=== PATIENT | male | born 1985 | race Caucasian/White ===

== ENCOUNTER 2017-12-28 08:31 | Emergency (ER) | payer BC ==
[2017-12-28 08:55] VITALS: BP 146/79
--- NOTE | 2017-12-28 10:02 | UC ---
Lower Extremity/Ankle HPI - HPI Summary HPI Summary: 32 yo male presents with left ankle pain and low back pain s/p fall last night. He tells me that he was standing on a bucket while fixing his truck and fell backwards. He landed on his "tailbone" and twisted his left ankle. Has had pain in these areas since. Did not hit his head. He has been taking 800mg ibuprofen with good relief of pain. He has fx'd his left ankle in the past and is concerned he may have fractured it again. He is ambulatory without assistance, but does have significant pain. He denies numbness, tingling, saddle anesthesia , of loss of bowel/bladder control. - History of Current Complaint Chief Complaint: UCTrauma Stated Complaint: S/P FALL LEFT LEG/TAILBONE Time Seen by Provider: 12/28/17 10:01 Hx Obtained From: Patient Severity Initially: Moderate Severity Currently: Moderate Pain Intensity: 6 Pain Scale Used: 0-10 Numeric Aggravating Factor(s): Standing, Ambulation Able to Bear Weight: Yes - Allergies/Home Medications Allergies/Adverse Reactions: Allergies Allergy/AdvReac Type Severity Reaction Status Date / Time No Known Allergies Allergy Verified 12/28/17 08:55 Home Medications: Home Medications Ibuprofen TAB* [Motrin TAB* 800 MG] 800 mg PO Q6H 12/28/17 [History Confirmed ] Omeprazole CAP* [Prilosec CAP* 20 MG] 20 mg PO BEDTIME 12/28/17 [History Confirmed 12/28/17] PMH/Surg Hx/FS Hx/Imm Hx GI/ History: Gastroesophageal Reflux - Surgical History Surgical History: Yes Surgery Procedure, Year, and Place: HERNIA - Family History Known Family History: Positive: None - Social History Occupation: Employed Full-time Lives: With Family Alcohol Use: Occasionally Substance Use Type: None Smoking Status (MU): Never Smoked Tobacco Review of Systems Constitutional: Negative Skin: Negative Respiratory: Negative Cardiovascular: Negative Gastrointestinal: Negative Genitourinary: Negative Neurovascular: Negative Musculoskeletal: Other: - LBP. Left ankle pain Neurological: Negative Psychological: Negative All Other Systems Reviewed And Are Negative: Yes Physical Exam - Summary Physical Exam Summary: GENERAL: NAD. WDWN. No pain distress. SKIN: No rashes, sores, lesions, or open wounds. NECK: Supple. FROM. Nontender. No lymphadenopathy. CHEST: CTAB. No r/r/w. No accessory muscle use. Breathing comfortably and in no distress. CV: RRR. Without m/r/g. Pulses intact. Cap refill <2seconds MSK: TTP over coccyx. Pain with flexion and extension of spine. Negative SLR b/ l. Strength 5/5 B/L LEs including dorsiflexion and plantar flexion. FROM B/L LEs. No edema. LEFT ANKLE: Moderate edema and TTP over lateral malleolus. PAin with inversion. Negative talar tilt. No increased laxity. Negative [place] test. NEURO: Alert. Sensations intact B/L LEs L3-S1. PSYCH: Age appropriate behavior. Triage Information Reviewed: Yes Vital Signs: Initial Vital Signs Temp 98.5 F 12/28/17 08:51 Pulse 76 12/28/17 08:51 Resp 18 12/28/17 08:51 BP 146/79 12/28/17 08:51 Pulse Ox 99 12/28/17 08:51 Vital Signs Reviewed: Yes Lower Extremity Course/Dx - Course Course Of Treatment: XR: IMPRESSION: NO ACUTE OSSEOUS INJURY OF THE SACRUM AND COCCYX. PLAIN FILMS ARE RELATIVELY INSENSITIVE. TO NONDISPLACED FRACTURES OF THE SACRUM AND COCCYX. IF THERE IS PERSISTENT CLINICAL. CONCERN FOR SACROCOCCYGEAL OSSEOUS PATHOLOGY, BONE SCANNING MAY BE MORE SENSITIVE. XR left ankle: FINDINGS: BONE DENSITY: Normal. BONES: There is no acute displaced fracture. There is chronic posttraumatic deformity to. the distal fibula. Calcaneal enthesophytes are noted. JOINTS: There is no arthropathy. ALIGNMENT : There is no dislocation. SOFT TISSUES: Unremarkable. OTHER FINDINGS: None. IMPRESSION: EVIDENCE OF REMOTE TRAUMA. NO ACUTE OSSEOUS INJURY. IF SYMPTOMS PERSIST, RECOMMEND REPEAT. IMAGING. Suspect left ankle sprain and low back pain/contusion due to fall. Advised to RICE and continue ibuprofen. He was placed in an NATASHA wrap and gel ankle splint. He declined crutches today. F/u with Ortho prn. - Differential Dx/Diagnosis Provider Diagnoses: Fall. Left ankle sprain. Low back pain Discharge - Sign-Out/Discharge Documenting (check all that apply): Patient Departure All imaging exams completed and their final reports reviewed: Yes - Discharge Plan Condition: Stable Disposition: HOME Patient Education Materials: Ankle Sprain (ED), Coccyx Injury (ED) Referrals: No Primary Care Phys,NOPCP [Primary Care Provider] - Andrews Boyd MD [Medical Doctor] - If Needed Additional Instructions: If you develop a fever, shortness of breath, chest pain, new or worsening symptoms - please call your PCP or go to the ED. Your blood pressure was mildly elevated at todays visit. Please see your primary provider within 4 weeks for recheck and re-evaluation. 1) May take 600-800mg ibuprofen very 6-8 hours as needed for pain 2) Rest, Ice, and elevate your ankle as much as possible 3) Please follow up with Orthopedics at the number below if your symptoms do not improve or worsen. - Billing Disposition and Condition Condition: STABLE Disposition: Home - Attestation Statements Provider Attestation: Per institutional requirements, I have reviewed the chart, however, I was not consulted specifically or made aware of this patient by the midlevel provider. I did not personally evaluate, interact with , or disposition this patient.
--- NOTE | 2017-12-28 10:38 | RAD ---
HISTORY: Pain lateral COMPARISONS: None VIEWS: 3 , Frontal, lateral, and oblique views of the left ankle FINDINGS: BONE DENSITY: Normal. BONES: There is no acute displaced fracture. There is chronic posttraumatic deformity to the distal fibula. Calcaneal enthesophytes are noted. JOINTS: There is no arthropathy. ALIGNMENT: There is no dislocation. SOFT TISSUES: Unremarkable. OTHER FINDINGS: None. IMPRESSION: EVIDENCE OF REMOTE TRAUMA. NO ACUTE OSSEOUS INJURY. IF SYMPTOMS PERSIST, RECOMMEND REPEAT IMAGING.
--- NOTE | 2017-12-28 10:38 | RAD ---
HISTORY: Fall, sacral pain COMPARISONS: None VIEWS: 3 , frontal, outlet, and lateral views of the sacrum and coccyx. FINDINGS: BONE DENSITY: Normal. BONES: There is no displaced fracture. The sacral arches are intact. JOINTS: There is no arthropathy. ALIGNMENT: There is no dislocation. SOFT TISSUES: Unremarkable. OTHER FINDINGS: None. IMPRESSION: NO ACUTE OSSEOUS INJURY OF THE SACRUM AND COCCYX. PLAIN FILMS ARE RELATIVELY INSENSITIVE TO NONDISPLACED FRACTURES OF THE SACRUM AND COCCYX. IF THERE IS PERSISTENT CLINICAL CONCERN FOR SACROCOCCYGEAL OSSEOUS PATHOLOGY, BONE SCANNING MAY BE MORE SENSITIVE
== END 2017-12-28 11:08 | disposition home or self-care (01) ==
LOC: UCCORT 08:31
DX: S93.402A Sprain of unspecified ligament of left ankle, initial encounter (principal); M54.5 Low back pain; W17.89XA Other fall from one level to another, initial encounter; Y93.89 Activity, other specified; Y92.9 Unspecified place or not applicable; K21.9 Gastro-esophageal reflux disease without esophagitis
CPT/HCPCS: 72220; 99203; G0463

== ENCOUNTER 2018-05-15 11:38 | Emergency (ER) | payer BC ==
[2018-05-15 11:56] VITALS: BP 152/77
--- NOTE | 2018-05-15 12:06 | UC ---
Throat Pain/Nasal Nathan HPI - HPI Summary HPI Summary: sore throat x 1 day high fever, chills, body aches, mild cough, mild nasal congestion - History of Current Complaint Chief Complaint: UCGeneralIllness Stated Complaint: FEVER,SORE THROAT,ACHY Time Seen by Provider: 05/15/18 11:55 Hx Obtained From: Patient Onset/Duration: Gradual Onset, Lasting Days - 1, Still Present Severity: Moderate Pain Intensity: 7 Cough: Nonproductive Associated Signs & Symptoms: Positive: Nasal Discharge, Fever - Allergies/Home Medications Allergies/Adverse Reactions: Allergies Allergy/AdvReac Type Severity Reaction Status Date / Time No Known Allergies Allergy Verified 05/15/18 11:51 Home Medications: Home Medications Phenylephrine/Dm/Acetaminop/GG [Tylenol Cold-Flu Severe Liq] 1 dose PO ONCE [History Confirmed 05/15/18] PMH/Surg Hx/FS Hx/Imm Hx Cardiovascular History: Hypertension - Surgical History Surgical History: Yes Surgery Procedure, Year, and Place: HERNIA - Family History Known Family History: Positive: None, Hypertension - Social History Alcohol Use: Occasionally Substance Use Type: None Smoking Status (MU): Never Smoked Tobacco Type: Smokeless Tobacco Amount Used/How Often: 1 can every 3 dys Review of Systems All Other Systems Reviewed And Are Negative: Yes Constitutional: Positive: Fever, Chills, Fatigue Skin: Positive: Negative Eyes: Positive: Negative ENT: Positive: Sore Throat, Nasal Discharge Respiratory: Positive: Cough Cardiovascular: Positive: Negative Musculoskeletal: Positive: Arthralgia, Myalgia Is Patient Immunocompromised?: No Physical Exam Triage Information Reviewed: Yes Appearance: Well-Appearing, No Pain Distress, Well-Nourished Vital Signs: Initial Vital Signs Temp 99.4 F 05/15/18 11:52 Pulse 93 05/15/18 11:52 Resp 18 05/15/18 11:52 BP 152/77 05/15/18 11:52 Pulse Ox 98 05/15/18 11:52 Vital Signs Reviewed: Yes Eye Exam: Normal Eyes: Positive: Conjunctiva Clear ENT: Positive: Normal ENT inspection, Hearing grossly normal, Pharyngeal erythema. Negative: Nasal congestion, Nasal drainage, Tonsillar swelling, Tonsillar exudate Neck: Positive: Supple, Nontender, No Lymphadenopathy Respiratory: Positive: Chest non-tender, Lungs clear, Normal breath sounds Cardiovascular: Positive: RRR, No Murmur, Pulses Normal Abdominal Exam: Normal Throat Pain/Nasal Course/Dx - Differential Dx/Diagnosis Provider Diagnosis: Influenza Discharge - Sign-Out/Discharge Documenting (check all that apply): Patient Departure All imaging exams completed and their final reports reviewed: No Studies - Discharge Plan Condition: Stable Disposition: HOME Prescriptions: Oseltamivir CAP* [Tamiflu CAP*] 75 mg PO BID #10 cap Patient Education Materials: Influenza (DC) Referrals: No Primary Care Phys,NOPCP [Primary Care Provider] - If Needed - Billing Disposition and Condition Condition: STABLE Disposition: Home
[2018-05-15 12:16] LABS: Influenza A Molecular POSITIVE (Negative)
== END 2018-05-15 12:32 | disposition home or self-care (01) ==
LOC: UCCORT 11:38
DX: J11.1 Influenza due to unidentified influenza virus with other respiratory manifestations (principal); I10 Essential (primary) hypertension
CPT/HCPCS: 99212; G0463